=== PATIENT | male | born 1955 | race Caucasian/White ===

== ENCOUNTER 2025-01-05 08:41 | Observation (INO) | payer MEDICARE, OTHER ==
--- NOTE | 2024-12-30 14:11 | ELECTROCARDIOGRAPH REPORT ---
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 Alvaro Duron Measurements Intervals Deshler Rate: 57 P: -23 ME: 270 QRS: -22 QRSD: 110 T: 67 QT: 403 QTc: 393 Interpretive Statements Sinus bradycardia Prolonged ME interval Borderline left axis deviation Abnormal R-wave progression, early transition Electronically Signed On 12-31-2024 7:20:[address] Alvaro Duron Please click the below link to view image of tracing.
[2024-12-30 14:33] LABS: MEAN PLATELET VOLUME 6.9 FL (7.4-10.4); PRE OP HEMATOCRIT 46.5 % (42.0-52.0); PRE OP HEMOGLOBIN 15.9 g/dL (14.0-17.9); PRE OP PLATELET COUNT 270 X10'3 (140-440); PRE OP WHITE BLOOD COUNT 8.4 10'3 (4.8-10.8); RED CELL DISTRIBUTION WIDTH 13.8 % (11.5-14.5)
[2024-12-30 14:42] LABS: PRE OP INR 1.1 INR; PRE OP PARTIAL THROMB. TIME 27.0 SECONDS (22-32); PRE OP PROTIME 10.9 SECONDS (9.0-12.0)
[2024-12-30 14:44] LABS: CREATININE 1.39 MG/DL (0.60-1.10); PRE OP ALT 50 U/L (30-65); PRE OP ANION GAP 8 (8-16); PRE OP AST 21 U/L (10-37); PRE OP BILIRUB, TOTAL 0.6 MG/DL (0.0-1.0); PRE OP GLUCOSE 155 MG/DL (70-104); PRE OP POTASSIUM 4.0 MMOL/L (3.4-5.1); PRE OP SODIUM 136 MMOL/L (135-145); TOTAL CARBON DIOXIDE 25.7 MMOL/L (24-32); eGFR 51 ML/MIN
[~2025-01-05] VITALS: Ht 177.8 cm; Wt 86.6 kg
[2025-01-05] VITALS (27 sets, daily range): BP systolic 128–187; BP diastolic 62–99; PULSE 40–80; RESP 12–19; TEMP 97.4–98; O2SAT 92–98
[2025-01-05] MEDS: ceFAZolin 2gm/dext,iso 50mL 50 ML IV ONE (05:30)
[~2025-01-05 08:41] MED LIST: TAMS-55 PO
[2025-01-05] MEDS: ringers solution, lacted 1,000 ML IV SCH ×2 (09:32→13:00)
[2025-01-05] MEDS ORDERED: BUPIVAcaine 0.25% w/Epi /PF 30ml vial ONE (11:16)
[2025-01-05] MEDS ORDERED: BUPIVACAINE liposomal/PF 13.3 MG/ML 10mL vial IM ONE (11:17)
[2025-01-05] MEDS ORDERED: midazolam 1 mg/ML 2ml injection ONE (11:32)
[2025-01-05] MEDS ORDERED: fentaNYL /PF 50mcg/ml 5ml ampule ONE (11:32)
[2025-01-05] MEDS ORDERED: propofol inj 20 ML IV ONE (11:34)
[2025-01-05] MEDS: BUPIVAcaine 0.5% W/EPI /PF 10ml vial IJ ONE (12:15)
[2025-01-05] MEDS ORDERED: hydrALAZINE 20mg/ml inj. IV PRN (13:00)
[2025-01-05] MEDS ORDERED: ondansetron/PF 4mg/2ml inj IV PRN ×2 (13:00→15:15)
[2025-01-05] MEDS ORDERED: HYDROmorphone/PF 0.2 MG/ML SYRINGE IV PRN (13:00)
[2025-01-05] MEDS ORDERED: labetalol 20mg/4ml (5mg/ml) syringe IV PRN (13:00)
[2025-01-05] MEDS ORDERED: rocuronium 10mg/ml inj IV ONE ×2 (15:00)
[2025-01-05] MEDS ORDERED: ondansetron/PF 4mg/2ml inj ONE (15:01)
[2025-01-05] MEDS ORDERED: glycopyrrolate 0.2mg/ml inj ONE (15:01)
[2025-01-05] MEDS ORDERED: dexamethasone sod phosphate 4mg/ml inj. ONE (15:01)
[2025-01-05] MEDS ORDERED: acetaminophen 1,000mg/100ml IV 100 ML IV ONE (15:01)
[2025-01-05] MEDS ORDERED: HYDROmorphone inj. 0.5 MG/0.5 ML DISP.SYRIN IV PRN (15:15)
[2025-01-05] MEDS ORDERED: mag hydrox/Alum hydrox/simeth 30ml oral suspension PO PRN (15:15)
[2025-01-05] MEDS ORDERED: magnesium hydroxide 30ml (MOM) UD suspension PO PRN (15:15)
[2025-01-05] MEDS ORDERED: HYDROcodone/acetaminophen 5mg/325mg tablet PO PRN (15:15)
--- NOTE | 2025-01-05 15:32 | OPERATIVE REPORT ---
Operative Report Providers to ~ Date of Procedure: Jan 05, 2025 Pre-Operative Diagnosis: BPH, bladder stones Post-Operative Diagnosis SAME as PRE-Op Procedure Performed Robotic assisted laparoscopic simple prostatectomy and bladder stone removal Surgeon: MD Assistant Coleman Aden MD Raven Jennings, NP Anesthesiologist: Nilton Linn Type of Anesthesia: General Findings: Very large prostate and five bladder stones all removed Complications None Prosthetics\Implants used: Nine Estimated Blood Loss: Less than 100 cc Specimen Removed: Prostate BPH, bladder stones Description of Procedure: Patient was brought to the operating room, given a general anesthetic, and placed in the supine position. He was prepped and draped in the normal sterile fashion. A timeout was performed. A rodriguez catheter was placed. An incision was made above the umbilicus. Verass needle was used the insuflate the abdomen. Then an 8 nigerien robotic port was placed. We then placed 3 more robotic ports lateral to the median port. On the right a 12 nigerien child nutrition assistant port was placed under di rect visualization. The patient was put into steep trendelenburg and the robot was docked. With the robot docked I backfilled the bladder and then incised it open for transvesical approach. Once this was incised open I used four stay sutures to hold open the bladder. Following this I found the ureteral orifices and incised distal to them until I got to the adenoma of the prostate once the adenoma of the prostate I was able to shell it out circumferentially from the bladder neck all the way to the apex once it was completely remove the capsule was intact I then used Vicryl suture to reapproximate the mucosal edges of the bladder to the mucosal edge of the urethra this allowed the catheter to pass it easily. I made sure that the ureteral orifices were unaffected by this and reproducing good urine. Bladder stones were grasped and removed at this point. I next turned my attention to closing the bladder. Using running five V lock suture I closed the bladder in three layers. This was then tested and found to be watertight. A new rodriguez catheter and was placed for continuous bladder irrigation. The prostate was placed in a specimen bag and the robot was undocked. The incision over the umbilicus was increased to allow the prostate to be removed, at which point it was removed. 2-0 vicryl suture was used to close the fascia, local anesthetic was injected into each wound, and 4-0 monocryl suture was used to close the skin with dermabond glue on the skin level. ZAK ADEN MD Jan 05, 2025 15:32
[2025-01-05] MEDS: HYDROmorphone/PF 0.2 MG/ML SYRINGE IV PRN (15:33)
[2025-01-05] MEDS: morphine 4 MG/ML inj SYRINge IV PRN (15:40)
[2025-01-05] MEDS: docusate sod 100mg capsule PO SCH (19:56)
[2025-01-05] MEDS: heparin, porcine 5000 units/ml vial SQ SCH (19:56)
[2025-01-06 00:50] VITALS: BP 156/68; PULSE 49
[2025-01-06 02:00] VITALS: BP 152/66; PULSE 51; RESP 18; TEMP 97.9; O2SAT 95
[2025-01-06 04:35] LABS: MEAN PLATELET VOLUME 6.9 FL (7.4-10.4); RED CELL DISTRIBUTION WIDTH 13.9 % (11.5-14.5)
[2025-01-06 04:55] LABS: CREATININE 1.24 MG/DL (0.60-1.10); TOTAL CARBON DIOXIDE 23.8 MMOL/L (24-32); eCRCL 57 ML/MIN; eGFR 58 ML/MIN
[2025-01-06 06:00] VITALS: BP 137/60; PULSE 79; RESP 18; TEMP 98; O2SAT 94
--- NOTE | 2025-01-06 08:05 | DISCHARGE SUMMARY ---
Discharge Summary Providers to CC ~ Discharge Summary Admission Diagnosis: BPH, bladder stones Hospital Course DATE OF ADMISSION: DATE OF DISCHARGE: Discharge Diagnosis\Comment: BPH and bladder stones. Operations\Procedures: 01/05/25: Robotic assisted simple prostatectomy with bladder stone removal. Consultants: None Complications: None Condition on DC: Stable Discharge Summary: Patient was admitted for post-operative management. Tolerated a diet and ambulated. Irrigated was decreased and his pain was controlled. General: Awake and Alert, no acute distress. HEENT: Conjunctiva pink, Sclera clear, Mucus Membranes moist. Neck: Supple without masses and tenderness. Resp: Unlabored. Heart: Regular Rate and rhythm Abdomen: Soft and non tender no organomegaly, incisions clean, dry, and intact Extremities: No cyanosis,clubbing or edema. Skin: Warm and Dry. *Problems/Diagnosis: (1) BPH (benign prostatic hyperplasia) Status: Chronic Assessment & Plan: Now s/p simple prostatectomy. Catheter to remain in place for 1 week. (2) Bladder stones Status: Chronic Assessment & Plan: Now s/p stone removal. Catheter to remain in place for 1 week. Total Time Spent on D/C: Up to 30 Minutes Problem Qualifiers (1) BPH (benign prostatic hyperplasia): Qualified Codes: N40.1 - Benign prostatic hyperplasia with lower urinary tract symptoms; R39.12 - Poor urinary stream ZAK MARKHAM MD Jan 06, 2025 08:05
[2025-01-06 10:14] VITALS: BP 108/57; PULSE 48; RESP 17; TEMP 97.7; O2SAT 93
== END 2025-01-06 10:30 | disposition home or self-care (01) ==
LOC: PAS 08:41 → PACU 08:41 → SUR 3N 17:51 → PAS 17:51
PROVIDERS: ADMIT Urology; ATTEND Urology
DX: N40.1 Benign prostatic hyperplasia with lower urinary tract symptoms (principal); N21.0 Calculus in bladder; R79.1 Abnormal coagulation profile; Z79.899 Other long term (current) drug therapy; Z98.890 Other specified postprocedural states
CPT/HCPCS: 51050; 55867; 80048; 80053; 82948; 85610; 85730; 86885; 86900; 86901; 93005; A4215; A4615; A4618; A5200; G0378; J0666; J1171; J1938; J2710; J3490; J7120; 36415; 85025; 87081; A4346; A4357; J0131; J0665; J1100; J2250; J2270; J2405; J2704; J3010